=== PATIENT | male | born 1935 | race Caucasian/White ===

== ENCOUNTER 2018-02-15 09:31 | Emergency (ER) | payer SELFPAY ==
[~2018-02-15] VITALS: Ht 177.8 cm; Wt 79.4 kg
[~2018-02-15 09:31] MED LIST: AMLO10 PO; ASPI81CH PO; ATOR10 PO; Cilostazol50 MG PO; IPRAIS NEB; METF500C PO; SERT50 PO
[2018-02-15 10:18] LABS: BASOPHILS ABSOLUTE AUTO 0.02 K/mm3 (0.00-0.23); BASOPHILS PERCENT AUTO 1 % (0-2); EOSINOPHILS ABSOLUTE AUTO 0.12 K/mm3 (0.00-0.68); EOSINOPHILS PERCENT AUTO 3 % (0-6); Hematocrit 40.6 % (37.0-53.0); Hemoglobin 13.6 g/dL (13.5-17.5); IMMATURE GRAN ABSOLUTE AUTO 0.07 K/mm3 (0.00-0.10); IMMATURE GRAN PERCENT AUTO 2 % (0-1); LYMPHOCYTES ABSOLUTE AUTO 1.13 K/mm3 (0.84-5.20); LYMPHOCYTES PERCENT AUTO 29 % (21-46); MONOCYTES ABSOLUTE AUTO 0.35 K/mm3 (0.16-1.47); MONOCYTES PERCENT AUTO 9 % (4-13); Mean Corpuscular HGB 32.2 pg (26.0-34.0); Mean Corpuscular HGB Conc 33.5 g/dL (31.5-36.5); Mean Corpuscular Volume 96 fL (80-100); Mean Platelet Volume 11.3 fL (9.1-12.4); NEUTROPHILS ABSOLUTE AUTO 2.15 K/mm3 (1.96-9.15); NEUTROPHILS PERCENT AUTO 56 % (41-73); Platelet Count 206 K/mm3 (150-400); RDW Coefficient Variation 12.5 % (11.7-14.2); RDW Standard Deviation 43.8 fL (35.1-46.3); Red Blood Cell Count 4.23 M/mm3 (4.30-5.90); White Blood Cell Count 3.84 K/mm3 (4.00-11.30)
[2018-02-15 10:36] LABS: International Normalized Ratio 1.02; Prothrombin Time Results 10.6 Sec (9.7-11.5)
[2018-02-15 10:37] LABS: Alanine Aminotransfer (ALT/SGP 30 U/L (12-78); Albumin, Blood 3.6 g/dL (3.4-5.0); Albumin/Globulin Ratio 1.1 (0.8-1.8); Alk Phos 38 U/L (50-136); Amylase, Blood 64 U/L (25-115); Anion Gap 7 mmol/L (6-16); Aspartate Aminotrans (AST/SGOT 27 U/L (12-37); Bilirubin, Total 0.4 mg/dL (0.1-1.0); Blood Urea Nitrogen 24 mg/dL (8-24); Bun/Creatinine Ratio 17.6 (12.0-20.0); CO2, Blood 26 mmol/L (21-32); Chloride, Blood 109 mmol/L (98-108); Creatinine, Blood 1.36 mg/dL (0.60-1.20); Ethanol (Alcohol), Blood, Med <3 mg/dL; Globulin, Blood 3.4 g/dL (2.2-4.0); Glomerular Filtration Rate 53 (60-); Glucose, Blood 105 mg/dL (70-99); Potassium, Blood 4.2 mmol/L (3.5-5.5); Sodium, Blood 142 mmol/L (136-145)
== END 2018-02-15 12:28 | disposition other institution (70) ==
LOC: ER 09:31
PROVIDERS: Emergency Medicine
DX: S22.42XA Multiple fractures of ribs, left side, initial encounter for closed fracture (principal); J44.9 Chronic obstructive pulmonary disease, unspecified; W11.XXXA Fall on and from ladder, initial encounter; Z79.899 Other long term (current) drug therapy; Z79.82 Long term (current) use of aspirin; Z79.84 Long term (current) use of oral hypoglycemic drugs; E11.9 Type 2 diabetes mellitus without complications; F43.10 Post-traumatic stress disorder, unspecified; Z87.891 Personal history of nicotine dependence
CPT/HCPCS: 36415; 36600; 70450; 71260; 72125; 74177; 80053; 82150; 82803; 83690; 85025; 85610; 85730; 86850; 86900; 86901; G0480; J2405; J3010; Q9967

== ENCOUNTER 2019-12-07 06:07 | Day surgery (SDC) | payer OTHER ==
[~2019-12-07] VITALS: Ht 175.3 cm; Wt 82.0 kg
[~2019-12-07 06:07] MED LIST changes: +ALBUTEROL SULFAT PO; +DOCU100 PO; +FISH OIL + D31 EACH PO; +LISI5 PO; +MULTIVITAMINS1 EAC3; +Norco 7.5-3251 EACH PO; +ONDA4ODT PO; +PANT40 PO; +Percocet 7.5-31 EACH PO; +THERA-D2000 UNIT PO; +ZESTORETIC 20-1 EAC1 PO
--- NOTE | 2019-12-07 09:45 | NUR ---
Pt received from Kelsey Rivera RN Pt is awake with slight tenderness left shoulder. Pt is paced with vss with pt hob up 30% pressure dressing intact with no bleeding or hematoma noted. Orders received for EKG- X-ray. IV Right AC #20 with NS 350 alan, IV clammped. Pt taking po without difficulty. Prescription given to outside of hospital, to [facility]. Pt Ashley told she should not come in hospital for her own health conditions.
--- NOTE | 2019-12-07 12:42 | NUR ---
Pt to x-ray via wheelchair pt with pain of 9/10 norco given po post eating lunch.
[2019-12-07] MEDS ORDERED: HYDR1TAB94 PO (13:11)
[2019-12-07] MEDS ORDERED: CEPH500 PO (13:12)
--- NOTE | 2019-12-07 13:30 | NUR ---
Left pressure dressing removed transparent drg with 2x2 over wound. Spot of blood no hematoma or any active bleeding. Pt is stable preparing for discharge.
--- NOTE | 2019-12-07 14:00 | NUR ---
Pt discharged via wheel chair. Discharge instructions given to patients son and Ashley. Family asked if patient could wear blue tooth necklace. Per [employer] said yes and told the patient only on the right side or opposite side of his chest. I called and confirmed this with Faina Bellamy RN [employer] rep. Pt is stable and in good spirits pain down to 3/10 upon discharge. Sling on Left arm. Pt with all belongs and educational information.
== END 2019-12-07 15:40 | disposition home or self-care (01) ==
LOC: MHTC 06:07
DX: I49.5 Sick sinus syndrome (principal); E78.5 Hyperlipidemia, unspecified; J44.9 Chronic obstructive pulmonary disease, unspecified; I12.9 Hypertensive chronic kidney disease with stage 1 through stage 4 chronic kidney disease, or unspecified chronic kidney disease; N18.9 Chronic kidney disease, unspecified; F17.200 Nicotine dependence, unspecified, uncomplicated; Z79.82 Long term (current) use of aspirin; Z79.899 Other long term (current) drug therapy
CPT/HCPCS: 33208; 71046; 76937; 99152; 99153; A9270-GY; C1785; C1898; J0690; J1644; J2250; J3010; J7040

== ENCOUNTER 2021-01-12 09:14 | Emergency (ER) | payer OTHER ==
[~2021-01-12] VITALS: Ht 175.3 cm; Wt 77.1 kg
[~2021-01-12 09:14] MED LIST changes: +CEPH500 PO; +HYDR1TAB94 PO
[2021-01-12 09:39] LABS: BASOPHILS ABSOLUTE AUTO 0.03 K/mm3 (0.00-0.23); BASOPHILS PERCENT AUTO 1 % (0-2); EOSINOPHILS PERCENT AUTO 4 % (0-6); Hematocrit 42.4 % (37.0-53.0); Hemoglobin 14.2 g/dL (13.5-17.5); IMMATURE GRAN ABSOLUTE AUTO 0.02 K/mm3 (0.00-0.10); IMMATURE GRAN PERCENT AUTO 0 % (0-1); LYMPHOCYTES ABSOLUTE AUTO 1.82 K/mm3 (0.84-5.20); LYMPHOCYTES PERCENT AUTO 40 % (21-46); MONOCYTES ABSOLUTE AUTO 0.47 K/mm3 (0.16-1.47); MONOCYTES PERCENT AUTO 10 % (4-13); Mean Corpuscular HGB 32.9 pg (26.0-34.0); Mean Corpuscular HGB Conc 33.5 g/dL (31.5-36.5); Mean Corpuscular Volume 98 fL (80-100); Mean Platelet Volume 11.7 fL (9.1-12.4); NEUTROPHILS ABSOLUTE AUTO 2.05 K/mm3 (1.96-9.15); NEUTROPHILS PERCENT AUTO 45 % (41-73); Platelet Count 244 K/mm3 (150-400); RDW Coefficient Variation 12.7 % (11.7-14.2); RDW Standard Deviation 45.6 fL (35.1-46.3); Red Blood Cell Count 4.31 M/mm3 (4.30-5.90); White Blood Cell Count 4.59 K/mm3 (4.00-11.30)
[2021-01-12] MEDS ORDERED: Prinivil10 MG PO (09:39)
[2021-01-12 10:01] LABS: Albumin/Globulin Ratio 1.2 (0.8-1.8); Bilirubin, Total 0.4 mg/dL (0.1-1.0); Calcium, Blood 9.6 mg/dL (8.5-10.1); Creatinine, Blood 1.33 mg/dL (0.60-1.20); Globulin, Blood 3.4 g/dL (2.2-4.0); Potassium, Blood 3.9 mmol/L (3.5-5.5); Total Protein, Blood 7.4 g/dL (6.4-8.2)
[2021-01-12] MEDS ORDERED: MECL25 PO (12:30)
== END 2021-01-12 13:15 | disposition home or self-care (01) ==
LOC: ER 09:14
PROVIDERS: Emergency Medicine
DX: R42 Dizziness and giddiness (principal); J44.9 Chronic obstructive pulmonary disease, unspecified; I10 Essential (primary) hypertension
CPT/HCPCS: 36415; 70450; 80053; 84484; 85025; 93005; 93010; 99284-25; A9270

== ENCOUNTER 2023-02-13 15:03 | Emergency (ER) | payer OTHER ==
[~2023-02-13] VITALS: Ht 175.3 cm; Wt 77.1 kg
[~2023-02-13 15:03] MED LIST changes: -FISH OIL + D31 EACH PO; +MECL25 PO; -MULTIVITAMINS1 EAC3; +MULVITA PO; +OMEGA-3 KRILL1 EAC3 PO; +PAXLOVID 150-11 EACH PO; +Prinivil10 MG PO
[2023-02-13] MEDS ORDERED: B-12500 MC2 PO (16:10)
[2023-02-13 16:11] LABS: BASOPHILS ABSOLUTE AUTO 0.02 K/mm3 (0.00-0.23); BASOPHILS PERCENT AUTO 1 % (0-2); EOSINOPHILS ABSOLUTE AUTO 0.17 K/mm3 (0.00-0.68); EOSINOPHILS PERCENT AUTO 5 % (0-6); Hematocrit 36.5 % (37.0-53.0); Hemoglobin 12.3 g/dL (13.5-17.5); IMMATURE GRAN ABSOLUTE AUTO 0.01 K/mm3 (0.00-0.10); IMMATURE GRAN PERCENT AUTO 0 % (0-1); LYMPHOCYTES ABSOLUTE AUTO 1.18 K/mm3 (0.84-5.20); LYMPHOCYTES PERCENT AUTO 32 % (21-46); MONOCYTES ABSOLUTE AUTO 0.38 K/mm3 (0.16-1.47); MONOCYTES PERCENT AUTO 10 % (4-13); Mean Corpuscular HGB 34.5 pg (26.0-34.0); Mean Corpuscular HGB Conc 33.7 g/dL (31.5-36.5); Mean Corpuscular Volume 102 fL (80-100); Mean Platelet Volume 12.2 fL (9.1-12.4); NEUTROPHILS ABSOLUTE AUTO 1.98 K/mm3 (1.96-9.15); NEUTROPHILS PERCENT AUTO 53 % (41-73); Platelet Count 251 K/mm3 (150-400); RDW Coefficient Variation 13.2 % (11.7-14.2); RDW Standard Deviation 50.4 fL (35.1-46.3); Red Blood Cell Count 3.57 M/mm3 (4.30-5.90); White Blood Cell Count 3.74 K/mm3 (4.00-11.30)
[2023-02-13 17:19] LABS: Albumin, Blood 3.4 g/dL (3.4-5.0); Albumin/Globulin Ratio 1.1 (0.8-1.8); Bilirubin, Total 0.2 mg/dL (0.1-1.0); Bun/Creatinine Ratio 19.2 (12.0-20.0); Creatinine, Blood 1.3 mg/dL (0.60-1.20); Globulin, Blood 3.2 g/dL (2.2-4.0); Potassium, Blood 4.4 mmol/L (3.5-5.5); Total Protein, Blood 6.6 g/dL (6.4-8.2)
[2023-02-13 20:00] VITALS: BP 115/53
== END 2023-02-13 20:17 | disposition home or self-care (01) ==
LOC: ER 15:03
PROVIDERS: Physician Assistant
DX: R07.9 Chest pain, unspecified (principal); Z79.899 Other long term (current) drug therapy; Z79.82 Long term (current) use of aspirin; E11.9 Type 2 diabetes mellitus without complications; J44.9 Chronic obstructive pulmonary disease, unspecified; F43.10 Post-traumatic stress disorder, unspecified; I10 Essential (primary) hypertension; Z87.891 Personal history of nicotine dependence
CPT/HCPCS: 71046; 80053; 83690; 83880; 84484; 85025; 85379; 93005; 93010

== ENCOUNTER 2023-05-17 09:02 | Day surgery (SDC) | payer OTHER ==
[~2023-05-17] VITALS: Ht 175.3 cm; Wt 81.0 kg
[2023-05-17] VITALS (11 sets, daily range): BP systolic 138–171; BP diastolic 65–84
[~2023-05-17 09:02] MED LIST changes: +ALBU90OI INH; +ATOR40TA PO; +B-12500 MC2 PO; +Bisoprolol Fumar5 MG PO; +OMEGA-3 + VITA200 ML
[2023-05-17] MEDS ORDERED: CLOP75 PO (11:43)
--- NOTE | 2023-05-17 14:00 | NUR ---
AIR FULLY REMOVED FROM BOTH R RADIAL TR BANDS. NO BLEEDING NOTED. VSS. NADN.
--- NOTE | 2023-05-17 15:00 | NUR ---
PT AMBULATES TO RESTROOM AND BACK WITHOUT DIFF. PT DRESSES SELF WITH MINIMAL ASSISTANCE. PT TR BANDS REMOVED. NO BLEEDING NOTED. SOFT, TENDER, WITH NOTED BRUISING. CLOTH DOT APPLIED. SPLING AND SLING IN PLACE. PT TOLERATES WELL. VSS. NADN. PT IV DC'D. CATH INTACT. PRESSURE DSG APPLIED. NO BLEEDING NOTED. PT, S/O & FAMILY VERBALIZES UNDERSTANDING WRITTEN AND VERBAL INSTRUCTIONS. PT DC TO HOME VIA WC BY FAMILY
== END 2023-05-17 15:00 | disposition home or self-care (01) ==
LOC: MHTC 09:02
DX: I25.10 Atherosclerotic heart disease of native coronary artery without angina pectoris (principal); R07.9 Chest pain, unspecified; E78.5 Hyperlipidemia, unspecified; J44.9 Chronic obstructive pulmonary disease, unspecified; N18.9 Chronic kidney disease, unspecified; I12.9 Hypertensive chronic kidney disease with stage 1 through stage 4 chronic kidney disease, or unspecified chronic kidney disease; Z95.0 Presence of cardiac pacemaker
CPT/HCPCS: 76937; 85347; 93458; 99152; 99153; A9270; C1725; C1769; C1874; C1887; C1894; C9600; J1644; J2250; J3010; J3246; J7030; J7050; Q9967